=== PATIENT | male | born 1990 | race Caucasian/White ===

== ENCOUNTER 2019-03-11 18:09 | Outpatient (REF) | payer BC, SELFPAY ==
[2019-03-14 10:50] LABS: Varicella IgG Antibody Negative
[2019-03-14 10:57] LABS: HSV Type 1 Ab, IgG Negative; HSV Type 2 Ab, IgG Negative; Syphilis Serology (RPR) Negative (Negative)
[2019-03-14 11:55] LABS: HIV-1/2 Ag & Ab Screen Negative (NEGAT)
== END 2019-03-11 18:29 ==
LOC: NCHCN 18:09
PROVIDERS: PCP Nurse Practitioner; Visit Provider Family Medicine
DX: Z11.59 Encounter for screening for other viral diseases (principal); Z11.4 Encounter for screening for human immunodeficiency virus [HIV]
CPT/HCPCS: 86787; 87389; 86592; 86695; 86696

== ENCOUNTER 2019-03-16 09:56 | Outpatient (REF) | payer BC, SELFPAY ==
[2019-03-17 14:47] LABS: Chlamydia Result Negative; GC Result Negative; Specimen Description URINE
== END 2019-03-16 10:16 ==
LOC: NCHCN 09:56
PROVIDERS: PCP Nurse Practitioner; Visit Provider Family Medicine
DX: Z11.3 Encounter for screening for infections with a predominantly sexual mode of transmission (principal)
CPT/HCPCS: 87491; 87591

== ENCOUNTER 2019-10-12 20:48 | Outpatient (REF) | payer BC, SELFPAY ==
[2019-10-14 13:10] LABS: Chlamydia Result Negative (Negative); GC Result Negative (Negative)
== END 2019-10-12 21:08 ==
LOC: NCHCN 20:48
PROVIDERS: PCP Nurse Practitioner; Visit Provider Specialist/Technologist Athletic Trainer
DX: N50.811 Right testicular pain (principal); Z11.3 Encounter for screening for infections with a predominantly sexual mode of transmission
CPT/HCPCS: 87491; 87591

== ENCOUNTER 2022-02-05 16:59 | Outpatient (REF) | payer OTHER, SELFPAY ==
[2022-02-05 15:24] LABS: Abs Immature Grans 0.01 10^3/uL (0.0-0.06); Absolute Basophil Count 0.03 10^3/uL (0.0-0.2); Absolute Eosinophil Count 0.05 10^3/uL (0.0-0.7); Absolute Lymphocyte Count 1.65 10^3/uL (1.2-3.4); Absolute Monocyte Count 0.43 10^3/uL (0.1-0.8); Absolute Neutrophil Count 3.44 10^3/uL (1.2-6.7); Basophils % 0.5; Eosinophils % 0.9; HCT 46.3 % (40.0-50.0); HGB 15.7 g/dL (13.5-17.5); Immature Grans % 0.2; Lymphocytes % 29.4; MCH 29.7 pg (27.0-33.0); MCHC 33.9 % (32.0-36.0); MCV 88 fL (80-95); Monocytes % 7.7; Neutrophils % 61.3; Platelet Count 244 10^3/uL (130-400); RBC 5.29 10^6/uL (4.36-5.78); RDW 12.6 % (11.8-14.1); RDW-SD 40.6 fL; WBC 5.61 10^3/uL (4.4-10.8)
[2022-02-05 15:47] LABS: ALT 25 U/L (16-63); AST 20 U/L (15-37); Albumin 4.4 g/dL (3.4-5.0); Alkaline Phosphatase 60 U/L (46-116); Anion Gap 9.1 mmol/L (3-11); BUN 23 mg/dL (7-18); Bilirubin, Total 0.6 mg/dL (0.2-1.0); CO2 29.9 mmol/L (21.0-32.0); CREATININE 1.1 mg/dL (0.70-1.30); Calcium 8.9 mg/dL (8.5-10.1); Calculated LDL 68 mg/dL (<100); Chloride 102 mmol/L (98-107); Cholesterol 133 mg/dL (<200); Glucose 84 mg/dL (74-106); HDL Cholesterol 60 mg/dL (40-60); Potassium 4.7 mmol/L (3.5-5.1); Sodium 141 mmol/L (136-145); Total Protein 7.4 g/dL (6.4-8.2); Triglyceride 29 mg/dL (<150)
== END 2022-02-05 17:00 | disposition home or self-care (01) ==
LOC: NCHCN 16:59
PROVIDERS: PCP Family Medicine; Visit Provider Family Medicine
DX: Z00.00 Encounter for general adult medical examination without abnormal findings (principal); Z13.220 Encounter for screening for lipoid disorders; Z13.228 Encounter for screening for other metabolic disorders
CPT/HCPCS: 80053; 80061; 85025